=== PATIENT | female | born 1995 | race African-American/Black ===

== ENCOUNTER 2024-11-13 17:01 | Emergency (ER) | payer MEDICAID, OTHER ==
[~2024-11-13] VITALS: Ht 160 cm; Wt 74.8 kg
[2024-11-13 17:04] VITALS: BP 125/85
[2024-11-13] MEDS ORDERED: IBUP-1490 PO (17:31)
[2024-11-13] MEDS ORDERED: ONDA4TAB5 PO (17:31)
[2024-11-13] MEDS ORDERED: AZIT250T PO (17:32)
[2024-11-13] MEDS ORDERED: IBUPROFEN 600 MG TABLET ONE (18:16)
[2024-11-13] MEDS ORDERED: ONDANSETRON 4 MG TAB.RAPDIS ONE (18:16)
[2024-11-13 18:18] VITALS: TEMP 100.8
[2024-11-13] MEDS: ONDANSETRON 4 MG TAB.RAPDIS PO ONE (18:18)
[2024-11-13] MEDS: IBUPROFEN 600 MG TABLET PO ONE (18:18)
[2024-11-13 18:27] VITALS: O2SAT 100
== END 2024-11-13 18:28 | disposition home or self-care (01) ==
LOC: ER 17:01
DX: J06.9 Acute upper respiratory infection, unspecified (principal)
CPT/HCPCS: 99283; Q0162